=== PATIENT | female | born 1995 | race Caucasian/White ===

== ENCOUNTER 2019-10-01 05:42 | Emergency (ER) | payer SELFPAY ==
--- NOTE | 2019-10-01 06:51 | ER Document Report ---
HPI - HPI Time Seen by Provider: 10/01/19 06:25 Pain Level: 3 Context: Patient is a 24-year-old female that comes emergency department for chief complaint of worsening sore throat for most 3 days now. She does report some mild congestion especially in the morning and evenings. She denies cough, fever, or any other complaints. She is still able to swallow but states it is painful. She states she has had strep throat in the past and this feels similar. She denies abdominal pain, headache, or any other complaints. She denies daily medications. LMP within the past month. - CONSTITUTIONAL Constitutional: DENIES: Fever, Chills - EENT EENT: REPORTS: Sore Throat - REPRODUCTIVE Reproductive: DENIES: : Past Medical History - General Information source: Patient - Social History Smoking Status: Current Every Day Smoker Smoking Education Provided: Yes - <3 min Frequency of alcohol use: None Drug Abuse: None Lives with: Family Family History: Reviewed & Not Pertinent Patient has suicidal ideation: No Patient has homicidal ideation: No - Past Medical History Cardiac Medical History: Denies: Hx Coronary Artery Disease, Hx Hypertension Pulmonary Medical History: Reports: Hx Asthma Endocrine Medical History: Denies: Hx Diabetes Mellitus Type 1, Hx Diabetes Mellitus Type 2 Past Surgical History: Reports: Hx Gynecologic Surgery - D & C - Immunizations Immunizations up to date: Yes Hx Diphtheria, Pertussis, Tetanus Vaccination: Yes - already received Vertical Provider Document - CONSTITUTIONAL General Appearance: WD/WN, No Apparent Distress - INFECTION CONTROL TRAVEL OUTSIDE OF THE [place] IN LAST 30 DAYS: No - HEENT HEENT: Atraumatic, Normocephalic. negative: Normal ENT Exam - Mild erythema of the posterior pharynx and tonsils, no significant swelling, no peritonsillar abscess, no exudates. Oropharyngeal exam unremarkable otherwise. Normal ears, sinuses, eyes - NECK Neck: Other - Mild bilateral anterior cervical adenopathy - RESPIRATORY Respiratory: Breath Sounds Normal, No Respiratory Distress - CARDIOVASCULAR Cardiovascular: Regular Rate, Regular Rhythm - GI/ABDOMEN Gastrointestinal: Abdomen Soft, Abdomen Non-Tender. negative: Abdomen Tender - BACK Back: Normal Inspection - MUSCULOSKELETAL/EXTREMETIES Musculoskeletal/Extremeties: MAEW, FROM, Non-Tender - NEURO Level of Consciousness: Awake, Alert, Appropriate Motor/Sensory: No Motor Deficit, No Sensory Deficit - DERM Integumentary: Warm, Dry, No Rash Course - Vital Signs Vital signs: Temp Pulse Resp BP Pulse Ox 98 F 106 H 18 123/93 H 99 10/01/19 06:12 10/01/19 06:12 10/01/19 06:12 10/01/19 06:12 10/01/19 06:12 Discharge - Discharge Clinical Impression: Pharyngitis Qualifiers: Pharyngitis/tonsillitis etiology: unspecified etiology Qualified Code(s): J02.9 - Acute pharyngitis, unspecified Condition: Stable Disposition: HOME, SELF-CARE Additional Instructions: The strep test is negative. This is most likely viral and should resolve with time. You can take [id number] medications for symptom management (Tylenol, ibuprofen, Benadryl, Zyrtec, etc.) You will be contacted for any concerning results from the culture. Follow-up with primary care. Return for any concerning symptoms including spiking fever, difficulty swallowing or breathing, or any other concerning or worsening symptoms. Referrals: AARON WHEATLEY MD [ACTIVE STAFF] - Follow up as needed
[2019-10-01] MEDS ORDERED: DEXAMETHASONE SOD PHOS INJ 10 MG/1 ML VIAL IM ONE (07:31)
[2019-10-01 08:20] VITALS: BP 113/76
== END 2019-10-01 08:20 | disposition home or self-care (01) ==
LOC: ER 05:42
DX: J02.9 Acute pharyngitis, unspecified (principal); R09.81 Nasal congestion; F17.200 Nicotine dependence, unspecified, uncomplicated
CPT/HCPCS: 87070; 87880; J1100